=== PATIENT | female | born 1965 | race Two or more races ===

== ENCOUNTER → 2016-08-23 | Outpatient (CLI) | payer BC ==
--- NOTE | ~2016-08-23 | MY29 ---
[facility] A Service of [facility] & [facility] RADIOLOGY TEXT RESULTS PATIENT: VIVIANE STOCKTON LOCATION: [facility] : 67 UNIT #: [id number] AGE: [address]: SUSAN UNDERWOOD APRN SEX: F ORDER DR: [id number] [facility] [address] [place], [place] [address] [id number] O MR#: [id number] Acc #: [id number] NAME: VIVIANE STOCKTON : 1965 SEX: F STUDY DATE/TIME: 08/23/2016 16:30 UNIT: [facility] ROOM: STUDY DESCRIPTION: MY [facility] SCREENING W/ CAD BILAT Attending Physician: Susan Underwood Ordering Physician: Debora Underwood M.D. Primary Care Physician: Blane Gonzalez M.D. MEDICAL IMAGING REPORT This report is preliminary unless electronic signature is present EXAM Digital screening mammogram 08/23/2016 [facility]. HISTORY 51-year-old woman, no risk elevation. Annual screen. COMPARISON 07/24/2014 FINDINGS Digital imaging of each breast was completed utilizing screening protocol. Review includes FDA-approved CAD device. Breast parenchyma is heterogeneous with a small nodular parenchymal pattern. Mild subareolar duct prominence is noted. Dermal calcifications are again noted upper inner left dermal breast location. I see no suspicious mass. There are no interval occurring microcalcifications and no suspicious architectural deformity. IMPRESSION Negative mammogram. Annual screening recommended. Patients over the age of 40 are entered into a reminder system with target due date for the next mammogram. BIRADS: 1 Negative Dictated by... Feroz Suggs M.D. THIS IS AN ELECTRONICALLY VERIFIED REPORT Feroz Suggs M.D. at 08/24/2016 11:50 AM ZEB/rhoda [facility] A Service of [facility] & [facility] RADIOLOGY TEXT RESULTS PATIENT: VIVIANE STOCKTON LOCATION: [facility] #: [id number] : 67 UNIT #: [id number] AGE: [address]: SUSAN UNDERWOOD APRN SEX: F ORDER DR: TD: 08/24/2016 11:36 JOB #: [id number] MEDICAL IMAGING REPORT Page 1 of 1 COPY
== END | disposition home or self-care (01) ==
LOC: CWCC 16:14
DX: Z12.31 Encounter for screening mammogram for malignant neoplasm of breast (principal)
CPT/HCPCS: G0202